=== PATIENT | female | born 1990 | race African-American/Black ===

== ENCOUNTER 2020-01-30 07:03 | Inpatient (IN) ==
[2020-01-30] MEDS ORDERED: SODIUM CHLORIDE 0.9% 1,000 ML IV STA (07:26)
[2020-01-30] MEDS ORDERED: HYDROmorphone 2 MG/1 ML VIAL IV STA ×2 (07:26→10:55)
[2020-01-30] MEDS ORDERED: ONDANSETRON 4 MG/2 ML VIAL IV STA (07:26)
[2020-01-30 07:48] LABS: Basophils % 0.2 % (0.0-0.8); Hematocrit 33.5 VOL% (35.7-47.0); Hemoglobin 10.8 GM/DL (12.0-16.0); Immature Granulocytes % 0.6 %; Immature Granulocytes Absolute 0.11 #; Lymphocytes # 0.6 10*3/uL (1.4-4.0); Lymphocytes % 3.3 % (21.3-54.2); Mean Corpuscular HGB Conc 32.2 GM/DL (32-36); Mean Corpuscular Volume 87.2 FL (87-102); Mean Platelet Volume 9.7 FL (9.6-12.0); Neutrophils % 92.9 % (38.7-73.9); Platelet Count 261 T/CUMM (130-400); Red Blood Count 3.84 MC/CUMM (3.8-5.5); Red Cell Distribution Width 14.6 % (9.3-17.3); White Blood Count 18.1 T/CUMM (4-12)
[2020-01-30 08:07] LABS: Albumin 3.3 G/DL (3.4-5.0); Bilirubin,Total 0.7 MG/DL (0.2-1.0); Osmolality,Calculated 264.5 MOS/KG (273-304); Total Protein 7.9 G/DL (6.4-8.3)
[2020-01-30 08:10] LABS: Apearance,Urine CLOUDY (Clear); Bacteria,Urine Occasional /HPF (Few); Bilirubin,Urine Negative (Negative); Blood, Urine Small mg/dL (Negative); Glucose,Urine (UA) Negative (Negative); Ketones,Urine 20 mg/dL (Negative); Mucus,Urine Occasional /LPF (Occasional); Nitrite,Urine Negative (Negative); Protein,Urine >=500 MG/DL; RBC,Urine 36 /HPF (0-4); Squamous Epithelial Cell,Urine Many /HPF (0-10); Urine Color Yellow (Yellow); Urine Specific Gravity 1.023 (1.001-1.035); WBC,Urine 418 /HPF (0-6)
[2020-01-30 08:13] LABS: Band Neutrophils 11 % (0-10); Hypochromasia 1+; Lymphocytes 2 % (20-55); Segmented Neutrophils 85 % (50-85); Total Cells Counted 100
[2020-01-30 08:14] LABS: Microcytosis Slight; Platelet Estimate Normal
[2020-01-30] MEDS ORDERED: cefTRIAXone 1,000 MG in SODIUM CHLORIDE 0.9% 100 ML IV STA (08:19)
[2020-01-30] MEDS ORDERED: PIPERACILLIN/TAZOBACTAM 3,375 MG in SODIUM CHLORIDE 0.9% 100 ML IV STA (10:26)
[2020-01-30] MEDS ORDERED: ACETAMINOPHEN 325 MG TABLET PO PRN (12:03)
[2020-01-30] MEDS: MORPHINE 4 MG/1 ML VIAL IV PRN (14:03)
[2020-01-30] MEDS: PIPERACILLIN/TAZOBACTAM 3,375 MG in SODIUM CHLORIDE 0.9% 100 ML IV SCH ×2 (15:16→23:16)
[2020-01-30] MEDS: LACTATED RINGERS 1,000 ML IV SCH ×2 (15:17→19:50)
[2020-01-30] MEDS: metroNIDAZOLE INJ 500 MG in PREMIX 1 EACH IV SCH (17:43)
[2020-01-31] MEDS: metroNIDAZOLE INJ 500 MG in PREMIX 1 EACH IV SCH ×3 (03:16→18:30)
[2020-01-31] MEDS: MORPHINE 4 MG/1 ML VIAL IV PRN ×3 (06:46→19:10)
[2020-01-31 07:29] LABS: Basophils % 0.1 % (0.0-0.8); Eosinophils % 0.1 % (0.00-10.9); Hematocrit 31.3 VOL% (35.7-47.0); Hemoglobin 9.7 GM/DL (12.0-16.0); Immature Granulocytes % 3.1 %; Immature Granulocytes Absolute 0.48 #; Lymphocytes # 0.6 10*3/uL (1.4-4.0); Lymphocytes % 4.1 % (21.3-54.2); Mean Corpuscular Volume 89.7 FL (87-102); Monocytes % 2.2 % (1.7-12.7); Neutrophils % 90.4 % (38.7-73.9); Platelet Count 219 T/CUMM (130-400); Red Blood Count 3.49 MC/CUMM (3.8-5.5); Red Cell Distribution Width 14.6 % (9.3-17.3); White Blood Count 15.6 T/CUMM (4-12)
[2020-01-31 07:57] LABS: Calcium 8.2 MG/DL (8.5-10.1); Osmolality,Calculated 268.1 MOS/KG (273-304)
[2020-01-31] MEDS: PANTOPRAZOLE 40 MG TABLET PO SCH (08:37)
[2020-01-31] MEDS: LACTATED RINGERS 1,000 ML IV SCH (08:39)
[2020-01-31] MEDS: PIPERACILLIN/TAZOBACTAM 3,375 MG in SODIUM CHLORIDE 0.9% 100 ML IV SCH ×3 (08:39→22:38)
[2020-01-31 09:11] LABS: Band Neutrophils 7 % (0-10); Hypochromasia 1+; Lymphocytes 4 % (20-55); Microcytosis 1+; Segmented Neutrophils 85 % (50-85); Total Cells Counted 100
[2020-01-31] MEDS ORDERED: MIDAZOLAM 2 MG/2 ML VIAL IV ONE (09:41)
[2020-01-31] MEDS ORDERED: DIAZEPAM 5 MG TABLET PO ONE (09:41)
[2020-01-31] MEDS ORDERED: fentaNYL 100 MCG/2 ML VIAL IV ONE (09:41)
[2020-01-31] MEDS ORDERED: BISACODYL 5 MG TABLET PO PRN (18:33)
[2020-01-31] MEDS: ONDANSETRON 4 MG/2 ML VIAL IV PRN (19:10)
[2020-02-01] MEDS: MORPHINE 4 MG/1 ML VIAL IV PRN ×4 (01:18→14:56)
[2020-02-01] MEDS: ONDANSETRON 4 MG/2 ML VIAL IV PRN ×2 (01:18→07:06)
[2020-02-01] MEDS: metroNIDAZOLE INJ 500 MG in PREMIX 1 EACH IV SCH ×3 (02:35→19:00)
[2020-02-01] MEDS: PIPERACILLIN/TAZOBACTAM 3,375 MG in SODIUM CHLORIDE 0.9% 100 ML IV SCH ×3 (07:49→22:55)
[2020-02-01] MEDS: PANTOPRAZOLE 40 MG TABLET PO SCH (08:17)
[2020-02-01] MEDS: LACTATED RINGERS 1,000 ML IV SCH ×2 (09:55→20:51)
[2020-02-01] MEDS: PROMETHAZINE 25 MG/1 ML VIAL IM PRN (11:05)
[2020-02-02] MEDS: metroNIDAZOLE INJ 500 MG in PREMIX 1 EACH IV SCH ×3 (02:57→18:30)
[2020-02-02] MEDS: MORPHINE 4 MG/1 ML VIAL IV PRN (05:34)
[2020-02-02 06:31] LABS: Basophils % 0.2 % (0.0-0.8); Eosinophils # 0.1 10*3/uL (0.0-0.87); Eosinophils % 0.8 % (0.00-10.9); Hematocrit 27.2 VOL% (35.7-47.0); Hemoglobin 8.5 GM/DL (12.0-16.0); Immature Granulocytes % 0.5 %; Immature Granulocytes Absolute 0.05 #; Lymphocytes # 0.9 10*3/uL (1.4-4.0); Mean Corpuscular HGB Conc 31.3 GM/DL (32-36); Mean Corpuscular Volume 87.7 FL (87-102); Mean Platelet Volume 9.9 FL (9.6-12.0); Monocytes % 4.3 % (1.7-12.7); Neutrophils % 85.2 % (38.7-73.9); Platelet Count 174 T/CUMM (130-400); Red Cell Distribution Width 14.8 % (9.3-17.3); White Blood Count 9.8 T/CUMM (4-12)
[2020-02-02] MEDS: PIPERACILLIN/TAZOBACTAM 3,375 MG in SODIUM CHLORIDE 0.9% 100 ML IV SCH ×3 (07:23→23:23)
[2020-02-02] MEDS: PANTOPRAZOLE 40 MG TABLET PO SCH (08:10)
[2020-02-02] MEDS ORDERED: KETOROLAC 15 MG/1 ML VIAL IM SCH (08:30)
[2020-02-02] MEDS: KETOROLAC 15 MG/1 ML VIAL IV SCH ×3 (09:51→21:28)
[2020-02-02] MEDS: PROMETHAZINE 25 MG/1 ML VIAL IM PRN (14:40)
[2020-02-02] MEDS ORDERED: FLUCONAZOLE 150 MG TABLET PO ONE (16:38)
[2020-02-02] MEDS: LACTATED RINGERS 1,000 ML IV SCH ×2 (17:33→21:28)
[2020-02-03] MEDS: metroNIDAZOLE INJ 500 MG in PREMIX 1 EACH IV SCH ×3 (03:29→21:35)
[2020-02-03] MEDS: KETOROLAC 15 MG/1 ML VIAL IV SCH ×4 (03:29→21:34)
[2020-02-03] MEDS: LACTATED RINGERS 1,000 ML IV SCH ×3 (05:43→21:35)
[2020-02-03] MEDS: PIPERACILLIN/TAZOBACTAM 3,375 MG in SODIUM CHLORIDE 0.9% 100 ML IV SCH ×3 (08:36→23:25)
[2020-02-03] MEDS: PANTOPRAZOLE 40 MG TABLET PO SCH (10:44)
[2020-02-03] MEDS ORDERED: fentaNYL 100 MCG/2 ML VIAL ONE (11:27)
[2020-02-03] MEDS ORDERED: MIDAZOLAM 2 MG/2 ML VIAL ONE (11:27)
[2020-02-03] MEDS ORDERED: LIDOCAINE 2% 5 ML VIAL ONE (11:27)
[2020-02-03] MEDS ORDERED: propofoL 200 MG/20 ML VIAL IV ONE (11:27)
[2020-02-03] MEDS ORDERED: SEVOFLURANE 1 UNIT/15 MINUTE INH ONE (11:27)
[2020-02-03] MEDS ORDERED: ONDANSETRON 4 MG/2 ML VIAL ONE (11:28)
[2020-02-03] MEDS ORDERED: GLYCOPYRROLATE 0.4 MG/2 ML VIAL ONE (11:28)
[2020-02-03] MEDS ORDERED: ROCURONIUM 100 MG/10 ML VIAL IV ONE (11:28)
[2020-02-03] MEDS ORDERED: DEXAMETHASONE 4 MG/1 ML VIAL ONE (11:28)
[2020-02-03] MEDS ORDERED: NEOSTIGMINE 10 MG/10 ML VIAL ONE (11:28)
[2020-02-03] MEDS ORDERED: SUCCINYLCHOLINE 200 MG/10 ML VIAL ONE (11:28)
[2020-02-04] MEDS: KETOROLAC 15 MG/1 ML VIAL IV SCH ×4 (03:50→21:22)
[2020-02-04] MEDS: metroNIDAZOLE INJ 500 MG in PREMIX 1 EACH IV SCH ×3 (05:09→21:19)
[2020-02-04] MEDS: PIPERACILLIN/TAZOBACTAM 3,375 MG in SODIUM CHLORIDE 0.9% 100 ML IV SCH ×3 (07:55→22:49)
[2020-02-04] MEDS: PANTOPRAZOLE 40 MG TABLET PO SCH (09:21)
[2020-02-04] MEDS: LACTATED RINGERS 1,000 ML IV SCH ×2 (16:39→21:22)
[2020-02-05] MEDS: KETOROLAC 15 MG/1 ML VIAL IV SCH ×2 (02:47→09:14)
[2020-02-05] MEDS: LACTATED RINGERS 1,000 ML IV SCH (05:54)
[2020-02-05] MEDS: metroNIDAZOLE INJ 500 MG in PREMIX 1 EACH IV SCH (05:55)
[2020-02-05 06:42] LABS: Basophils % 0.2 % (0.0-0.8); Eosinophils % 0.3 % (0.00-10.9); Hematocrit 25.6 VOL% (35.7-47.0); Hemoglobin 8.2 GM/DL (12.0-16.0); Immature Granulocytes % 0.5 %; Immature Granulocytes Absolute 0.03 #; Lymphocytes # 1.6 10*3/uL (1.4-4.0); Lymphocytes % 27.1 % (21.3-54.2); Mean Corpuscular Volume 86.2 FL (87-102); Mean Platelet Volume 9.3 FL (9.6-12.0); Monocytes % 12.1 % (1.7-12.7); Neutrophils % 59.8 % (38.7-73.9); Platelet Count 229 T/CUMM (130-400); Red Blood Count 2.97 MC/CUMM (3.8-5.5); Red Cell Distribution Width 15.1 % (9.3-17.3)
[2020-02-05] MEDS: PIPERACILLIN/TAZOBACTAM 3,375 MG in SODIUM CHLORIDE 0.9% 100 ML IV SCH (08:10)
[2020-02-05] MEDS: MORPHINE 4 MG/1 ML VIAL IV PRN (09:13)
[2020-02-05] MEDS: PANTOPRAZOLE 40 MG TABLET PO SCH (09:15)
[2020-02-05 11:53] VITALS: BP 114/63
== END 2020-02-05 12:30 | disposition home or self-care (01) | DRG 857 ==
LOC: N.ED 07:03 → N.EDINP 12:03 → N.3E 12:41
PROVIDERS: ADMIT Surgery; ATTEND Surgery